=== PATIENT | male | born 1990 | race Caucasian/White ===

== ENCOUNTER 2020-04-23 10:53 | Outpatient (CLI) | payer OTHER ==
--- NOTE | 2020-04-23 11:24 | RAD ---
LEFT SHOULDER 3 VIEWS: HISTORY: Left shoulder pain. FINDINGS/IMPRESSION: No fracture, dislocation, or bone destruction is identified. POS: [facility]
== END 2020-04-23 10:54 | disposition home or self-care (01) ==
LOC: MADRAD 10:53
PROVIDERS: ATTEND Orthopaedic Surgery
DX: S46.912A Strain of unspecified muscle, fascia and tendon at shoulder and upper arm level, left arm, initial encounter (principal)

== ENCOUNTER 2024-06-20 17:49 | Emergency (ER) | payer OTHER ==
[2024-06-20] MEDS ORDERED: Naproxen 500 MG TAB ONE (18:28)
== END 2024-06-20 18:48 | disposition home or self-care (01) ==
LOC: MADERS 17:49
DX: S93.492A Sprain of other ligament of left ankle, initial encounter (principal); X50.1XXA Overexertion from prolonged static or awkward postures, initial encounter; Y93.39 Activity, other involving climbing, rappelling and jumping off
CPT/HCPCS: 99283